=== PATIENT | male | born 1940 | race Caucasian/White ===

== ENCOUNTER → 2020-01-21 | Outpatient (CLI) | payer MEDICARE ==
[~2020-01-21] MED LIST: REGADENOSON 0.4 MG/5 ML SYRINGE ONE
== END | disposition home or self-care (01) ==
LOC: CFH 07:54
PROVIDERS: ATTEND Internal Medicine Cardiovascular Disease
DX: I25.5 Ischemic cardiomyopathy (principal); I99.8 Other disorder of circulatory system; I10 Essential (primary) hypertension; Z95.0 Presence of cardiac pacemaker
CPT/HCPCS: 78452; 93017; A9502; J2785

== ENCOUNTER → 2020-06-21 | Outpatient (CLI) | payer MEDICARE ==
[~2020-06-21] MED LIST changes: +ASPI-650 PO; +CLOP75TA PO; +LOSA25TA12 PO; +LOSA25TA25 PO; +LOVA40TA2 PO; +MELO15TA24 PO; +METO25TA91 PO; +METO50TA6 PO; +NITR0.3T5 SL; +NITR0.4T28 SL; +PANT20TA2 PO; +PANT40TA6 PO; -REGADENOSON 0.4 MG/5 ML SYRINGE ONE; +SUCR1TAB33 PO; +TAMS-11 PO; +TRIA15CR61 TP
== END | disposition home or self-care (01) ==
LOC: CFH 13:00
PROVIDERS: ATTEND Family Medicine
DX: G31.9 Degenerative disease of nervous system, unspecified (principal); R42 Dizziness and giddiness
CPT/HCPCS: 70450

== ENCOUNTER → 2021-02-23 | Outpatient (CLI) | payer MEDICARE ==
[~2021-02-23] MED LIST changes: +ASPI-1026 PO; -ASPI-650 PO; +ASPI325T20 PO
== END | disposition home or self-care (01) ==
LOC: CVU 08:15
PROVIDERS: ATTEND Psychiatry & Neurology Neurology
DX: I65.23 Occlusion and stenosis of bilateral carotid arteries (principal)
CPT/HCPCS: 93880